=== PATIENT | female | born 1960 | race Caucasian/White ===

== ENCOUNTER → 2016-04-20 07:53 | Outpatient (CLI) | payer MEDICAID ==
[2015-09-16 05:44] VITALS: BMI 23.6
[~2016-04-20 07:53] MED LIST: ABILIFY10 MG PO; ADDERALL 10 MG10 MG PO; CELEXA40 MG PO; CLEOCIN HCL300 MG PO; CYCLOBENZAPRINE10 MG PO; ESTRACE2 MG PO; HYDROCODONE-APA1 TAB PO; LEVOTHYROXINE125 MCG PO; METFORMIN HCL500 M1 PO; PROMETRIUM200 MG PO; STRATTERA40 MG PO; VESICARE10 MG PO; XANAX1 MG PO
== END | disposition home or self-care (01) ==
LOC: D.RAD 07:53
DX: R13.10 Dysphagia, unspecified (principal)

== ENCOUNTER → 2016-10-25 07:40 | Outpatient (CLI) | payer MEDICAID ==
[2015-09-16 05:44] VITALS: BMI 23.6
== END | disposition home or self-care (01) ==
LOC: D.NM 07:40
DX: R11.0 Nausea (principal)

== ENCOUNTER 2016-11-23 05:47 | Day surgery (SDC) | payer MEDICAID ==
[2016-11-22 10:26] LABS: HEMATOCRIT 39.1 % (36.0-48.0); HEMOGLOBIN 12.9 g/dL (12-16); MCH 32.5 pg (26.0-34.0); MCV 98.5 fL (80.0-100.0); MEAN PLATELET VOLUME 10.5 fL (7.4-10.4); RBC 3.97 10x6/uL (4.00-5.40); RDW 12.3 % (11.5-14.5); WBC 7.4 10x3/uL (4.8-10.8)
[2016-11-22 11:12] LABS: CALC OSMOLALITY 280 mosm/kg (275-300); CALCIUM 8.5 mg/dL (8.5-10.1); CARBON DIOXIDE 25.7 mmol/L (21.0-32.0); CHLORIDE - SERUM 105 mmol/L (98-107); CREATININE - SERUM 0.8 mg/dL (0.6-1.3); POTASSIUM - SERUM 3.7 mmol/L (3.5-5.1); SODIUM 139 mmol/L (136-145); UREA NITROGEN 16 mg/dL (7-18); eGFR NON AFRICAN AMERICAN 79 mL/min (90-120)
[2016-11-22 11:13] LABS: GLUCOSE 137 mg/dL (74-106)
[~2016-11-23] VITALS: Ht 157.5 cm; Wt 53.5 kg
--- NOTE | ~2016-11-23 | OP ---
PATIENT NAME: FRANCESCA FRASER MEDICAL RECORD: [id number] :62 LOCATION:[facility] ADMISSION DATE: SURGEON: MARY PEREZ MD DATE OF OPERATION: 11/23/2016 PREOPERATIVE DIAGNOSIS: Biliary dyskinesia. POSTOPERATIVE DIAGNOSES: Biliary dyskinesia with hepatomegaly. PROCEDURES: Laparoscopic cholecystectomy, intraoperative cholangiography without immediate surgeon interpretation and 18-gauge core needle liver biopsy. SURGEON: Mary Perez MD. FIELD LABORATORY OPERATOR: None. ESTIMATED BLOOD LOSS: Minimal. ANESTHESIA: General. COMPLICATIONS: None. The risks, possible complications and alternatives to procedure were explained to the patient. She elects to proceed. The discussion specifically included, but was not limited to, bleeding requiring emergency reoperation, infection, intestinal injury as well as an open procedure. OPERATIVE COURSE: The patient was conveyed to the operating room electively on 11/23/2016. General anesthesia was induced by the anesthesia staff. The abdomen was sterilely prepped and draped. A small skin quoc was accomplished in the left upper quadrant. A Veress needle was inserted through the skin quoc into the peritoneal cavity. CO2 insufflation was begun. Once a sufficient pneumoperitoneum had been achieved, a 5-mm trocar was inserted through an incision in the right upper quadrant. Under direct internal vision utilizing the television camera, a 12-mm trocar was inserted through an incision at the umbilicus. Another 5-mm trocar was inserted through an incision in the epigastrium. Another 5-mm trocar was inserted far laterally in the right upper quadrant. During insertion of the Veress needle and all trocars, there appeared to have been no injury to the bowels, any intraperitoneal or retroperitoneal structures. Abdominal survey was undertaken. I noted no evidence of injury. Under laparoscopic guidance, I percutaneously accessed the right upper quadrant utilizing an 18-gauge core needle liver biopsy device. Cores were obtained over the convexity of the liver. The biopsy sites were made hemostatic with electrocautery. I then advanced the cholangiogram trocar. I punctured a distended gallbladder fundus. I aspirated the bile. I then injected dye. Under real time fluoroscopy, static images were obtained. These were cholangiographic images. The indication for the liver biopsy is hepatomegaly. The cholangiogram trocar was removed. The gallbladder was grasped and retracted cephalad. The infundibulum was grasped and retracted laterally. Blunt dissection was begun on the triangle of Calot. One cystic artery and 1 cystic duct were identified. These were clipped multiply and divided between clips. OPERATIVE REPORT [id number] FRANCESCA FRASER The gallbladder was then excised from its bed and the liver. It was placed within an bag retrieval device and was withdrawn through the umbilical fascia defect. The 12-mm trocar was replaced and the abdomen reinsufflated. I irrigated and aspirated in the right upper quadrant. There was no bleeding even at low pressure of 8. The Rey-Kayy suture closure device was used with 0 Vicryl sutures to close the umbilical fascia. All the trocars were removed and the abdomen desufflated. The skin at the umbilicus was closed with interrupted 4-0 Vicryl Rapide sutures. The other skin incisions were closed with interrupted intracuticular 3-0 Vicryl sutures. Benzoin and Steri-Strips were applied. The patient was then extubated and conveyed to post-anesthesia care unit where she was in stable condition. She will be dismissed home on Dilaudid. I will see her in the office in 2-3 weeks. TRANSINT:[id number] Voice Confirmation ID: [id number] DOCUMENT ID: [id number] MARY PEREZ MD CC: RICARDO HIGGINS MD [id number] DICTATION DATE: 11/23/16 1435 STATION ENGINEER: 11/23/16 1823 [facility] 11/23/16 [facility] [address] [place] [address]
[~2016-11-23 05:47] MED LIST changes: -ADDERALL 10 MG10 MG PO; +ADDERALL 20 MG20 M1 PO; +BIOTIN5 MG PO; +ESTRACE 0.0142.5 GM VG; +GABAPENTIN100 MG PO; +KLONOPIN1 MG PO; +MYRBETRIQ50 MG PO; +NEXIUM20 MG PO; +OXYBUTYNIN CHLOR5 MG PO; +PHENERGAN25 M1 PO; +PREDNISONE20 MG PO; +PROVENTIL HFA6.7 GM INH; +REXULTI1 MG PO; +VITAMIN D5000 UNIT PO; +VOLTAREN75 MG PO; +XANAX0.5 MG PO
[2016-11-23 09:17] VITALS: BP 121/73; Ht 157.5 cm; Wt 53.5 kg
--- NOTE | 2016-11-23 15:06 | NUR ---
PATIENT STATES SHE TAKES HYDROCODONE 10MG TID.
--- NOTE | 2016-11-23 17:18 | NUR ---
1710 UP AND VOIDED.NAUSEA BETTER. PAIN BETTER A 5. BANDAIDS X 4 TO ABDOMEN. SMALL AMT BLEEDING AT LOWER ABDOMEN LARGE BANDAID. TOLERATED LIQUIDS.
--- NOTE | 2016-11-23 17:18 | NUR ---
1700 REPORT FROM FRAN ALEXANDER.
--- NOTE | 2016-11-23 17:19 | NUR ---
1715 IV DCD CATHETER INTACT. DISCHARGE INSTRUCTIONS GIVEN AND VERBALLY UNDERSTANDS. SCRIPT GIVEN.
--- NOTE | 2016-11-23 17:28 | NUR ---
1725 DISCHARGED TO HOME VIA W/C.
== END 2016-11-23 17:25 | disposition home or self-care (01) ==
LOC: D.OPS 05:47 → D.PAN 10:15 → D.OPS 11:15
PROVIDERS: Anesthesiology
DX: K82.8 Other specified diseases of gallbladder (principal); R16.0 Hepatomegaly, not elsewhere classified; F17.200 Nicotine dependence, unspecified, uncomplicated; E03.9 Hypothyroidism, unspecified; E11.9 Type 2 diabetes mellitus without complications; K21.9 Gastro-esophageal reflux disease without esophagitis; Z01.812 Encounter for preprocedural laboratory examination

== ENCOUNTER 2016-11-28 10:17 | Emergency (ER) | payer MEDICAID ==
[2016-11-23 09:17] VITALS: BMI 21.6
[2016-11-28 11:39] LABS: BASOPHILS 0.3 % (0-2); EOSINOPHILS 4.9 % (0-7); HEMATOCRIT 37.6 % (36.0-48.0); HEMOGLOBIN 12.5 g/dL (12-16); IMMATURE GRANULOCYTES 0.5 % (0-5); LYMPHOCYTES 40.3 % (15-50); MCH 32.8 pg (26.0-34.0); MCHC 33.2 g/dL (31.0-37.0); MCV 98.7 fL (80.0-100.0); MEAN PLATELET VOLUME 10.4 fL (7.4-10.4); MONOCYTES 12.1 % (2-11); NEUTROPHILS 41.9 % (40-80); PLATELET COUNT 366 10x3/uL (130-400); RBC 3.81 10x6/uL (4.00-5.40); WBC 9.4 10x3/uL (4.8-10.8)
[2016-11-28 12:00] LABS: ALKALINE PHOSPHATASE 106 U/L (46-116); ALT (SGPT) 47 U/L (10-68); BILIRUBIN - TOTAL 0.16 mg/dL (0.2-1.3); CALC OSMOLALITY 279 mosm/kg (275-300); CALCIUM 9.2 mg/dL (8.5-10.1); CARBON DIOXIDE 29.5 mmol/L (21.0-32.0); CHLORIDE - SERUM 104 mmol/L (98-107); CREATININE - SERUM 0.8 mg/dL (0.6-1.3); GLUCOSE 95 mg/dL (74-106); LIPASE 86 U/L (73-393); POTASSIUM - SERUM 4.3 mmol/L (3.5-5.1); PROTEIN - SERUM 6.9 g/dL (6.4-8.2); SODIUM 140 mmol/L (136-145); UREA NITROGEN 14 mg/dL (7-18); eGFR NON AFRICAN AMERICAN 79 mL/min (90-120)
[2016-11-28 14:13] LABS: APPEARANCE CLEAR (CLEAR); BILIRUBIN NEGATIVE (NEGATIVE); COLOR YELLOW (YELLOW); GLUCOSE NEGATIVE (NEGATIVE); KETONE NEGATIVE (NEGATIVE); LEUKOCYTE ESTERASE NEGATIVE (NEGATIVE); NITRITE NEGATIVE (NEGATIVE); PROTEIN NEGATIVE (NEGATIVE); UROBILINOGEN NORMAL (NORMAL)
== END 2016-11-28 14:33 | disposition home or self-care (01) ==
LOC: D.ER 10:17
PROVIDERS: Emergency Medicine
DX: R10.9 Unspecified abdominal pain (principal)